=== PATIENT | female | born 1980 | race Hispanic/Latino ===

== ENCOUNTER 2021-06-13 22:34 | Emergency (ER) | payer SELFPAY ==
[~2021-06-13] VITALS: Ht 154.9 cm; Wt 60.6 kg
[2021-06-13 22:48] VITALS: BP 140/93
[2021-06-13 23:09] VITALS: BP 99/70
[2021-06-13 23:30] VITALS: BP 109/68
[2021-06-13 23:33] LABS: URINE BILIRUBIN - DIPSTICK NEGATIVE (NEGATIVE); URINE BLOOD DIPSTICK MODERATE (NEGATIVE); URINE COLOR YELLOW; URINE GLUCOSE - DIPSTICK NEGATIVE (NEGATIVE); URINE PH 6.5 (4.5-8.0); URINE PROTEIN - DIPSTICK TRACE mg/dL (NEG-TRACE); URINE SPECIFIC GRAVITY <=1.005; URINE UROBILINOGEN - DIPSTICK 0.2 E.U./dL (0.2)
[2021-06-13 23:42] LABS: ALBUMIN 4.5 g/dL (3.2-5.0); ALKALINE PHOSPHATASE 66 u/l (38-126); AMYLASE 71 u/l (30-110); ANION GAP 16 (6-22 (CALC)); BILIRUBIN, TOTAL 0.7 mg/dL (0.0-1.4); BUN 14 mg/dL (7-17); BUN/CREATININE RATIO 13 (12-20 (CALC)); CARBON DIOXIDE 21 mmol/l (22-30); CHLORIDE 99 mmol/l (95-108); CREATININE 1.1 mg/dL (0.5-1.0); GFR 55 ML/MIN (>=60 (CALC)); GFR FOR AFR.AMER. > 60 ML/MIN (>=60 (CALC)); HEMATOCRIT 24.8 % (37.0-47.0); HEMOGLOBIN 7.7 g/dl (12.0-16.0); LIPASE 92 u/l (23-300); MEAN CELL VOLUME 82.4 fL CALC (80.0-100.0); MEAN CORPUSCULAR HGB 25.6 pG CALC (26.0-32.0); NEUT# 0.98 thou/uL (2.00-7.15); POTASSIUM 3.3 mmol/l (3.5-5.1); RED BLOOD COUNT 3.01 mill/uL (4.20-5.60); RED CELL DISTRI WIDTH 14.9 % (11.5-15.5); SGOT/AST 70 u/l (14-36); SODIUM 132 mmol/l (137-146); TOTAL PROTEIN 7.4 g/dL (6.3-8.2)
[2021-06-13 23:51] LABS: URINE KETONE NEGATIVE (NEGATIVE); URINE LEUK ESTERASE LARGE (NEGATIVE); URINE NITRITE - DIPSTICK POSITIVE (Negative)
[2021-06-13 23:53] LABS: URINE EPITHELIAL CELLS MODERATE EPI/hpf (0-FEW); URINE WBC 20-50 WBC/hpf (0-5)
[2021-06-13 23:54] LABS: URINE BACTERIA MANY hpf
[2021-06-14] VITALS (10 sets, daily range): BP systolic 84–105; BP diastolic 56–69
--- NOTE | 2021-06-15 09:27 | NUR ---
PRELIMINARY BC SHOWS GRAM (-) RODS IN 4/4 VIALS. RESULTS FAXED TO NURSE ASHLEY AT [facility] ([phone]).
== END 2021-06-14 00:33 | disposition short-term general hospital (02) | DRG 690 ==
LOC: ED 22:34 → ED-I 06-14 02:10
PROVIDERS: Emergency Medicine
DX: N39.0 Urinary tract infection, site not specified (principal); D64.9 Anemia, unspecified; D72.819 Decreased white blood cell count, unspecified; Z20.822 Contact with and (suspected) exposure to COVID-19
CPT/HCPCS: Q9967

== ENCOUNTER 2021-10-03 10:59 | Emergency (ER) | payer SELFPAY ==
[~2021-10-03] VITALS: Ht 154.9 cm; Wt 63.6 kg
[2021-10-03 11:13] VITALS: BP 124/89
[2021-10-03 11:30] VITALS: BP 110/85
[2021-10-03 12:00] VITALS: BP 117/87
[2021-10-03 12:30] VITALS: BP 116/90
[2021-10-03 13:01] VITALS: BP 116/90
== END 2021-10-03 13:02 | disposition home or self-care (01) | DRG 179 ==
LOC: ED 10:59
DX: U07.1 COVID-19 (principal); R51.9 Headache, unspecified; R50.9 Fever, unspecified

== ENCOUNTER 2021-11-30 13:48 | Emergency (ER) | payer SELFPAY ==
[2021-11-30] VITALS (13 sets, daily range): BP systolic 127–163; BP diastolic 90–112
[~2021-11-30] VITALS: Ht 154.9 cm; Wt 60.0 kg
[2021-11-30 14:26] LABS: HEMATOCRIT 26.6 % (37.0-47.0); HEMOGLOBIN 8.2 g/dl (12.0-16.0); IMMATURE GRANULOCYTES 0.1 % (0.0-5.0); MEAN CELL VOLUME 81.8 fL CALC (80.0-100.0); MEAN CORPUSCULAR HGB 25.2 pG CALC (26.0-32.0); MEAN CORPUSCULAR HGB CONC 30.8 g/dL CAL (32.0-36.0); NEUT# 4.4 thou/uL (2.00-7.15); RED BLOOD COUNT 3.25 mill/uL (4.20-5.60); RED CELL DISTRI WIDTH 18.2 % (11.5-15.5)
[2021-11-30 14:37] LABS: ALBUMIN 5.1 g/dL (3.2-5.0); ALKALINE PHOSPHATASE 46 u/l (38-126); ANION GAP 18 (6-22 (CALC)); BILIRUBIN, TOTAL 0.5 mg/dL (0.0-1.4); BUN 14 mg/dL (7-17); BUN/CREATININE RATIO 13 (12-20 (CALC)); CARBON DIOXIDE 22 mmol/l (22-30); CHLORIDE 102 mmol/l (95-108); CREATININE 1.1 mg/dL (0.5-1.0); GFR FOR AFR.AMER. > 60 ML/MIN (>=60 (CALC)); GFR OTHER RACES 55 ML/MIN (>=60 (CALC)); LIPASE 166 u/l (23-300); POTASSIUM 3.2 mmol/l (3.5-5.1); SGOT/AST 64 u/l (14-36); TOTAL PROTEIN 8.5 g/dL (6.3-8.2)
[2021-11-30 14:41] LABS: SODIUM 139 mmol/l (137-146)
[2021-11-30 16:02] LABS: URINE BILIRUBIN - DIPSTICK NEGATIVE (NEGATIVE); URINE BLOOD DIPSTICK TRACE-INTACT (NEGATIVE); URINE COLOR YELLOW; URINE GLUCOSE - DIPSTICK NEGATIVE (NEGATIVE); URINE KETONE NEGATIVE (NEGATIVE); URINE LEUK ESTERASE NEGATIVE (NEGATIVE); URINE PH 6.5 (4.5-8.0); URINE PROTEIN - DIPSTICK NEGATIVE (NEG-TRACE); URINE SPECIFIC GRAVITY 1.015; URINE UROBILINOGEN - DIPSTICK 0.2 E.U./dL (0.2)
[2021-11-30 16:10] LABS: URINE NITRITE - DIPSTICK NEGATIVE (Negative)
[2021-11-30] MEDS ORDERED: ZOFRAN4 MG/TAB PO (16:44)
== END 2021-11-30 17:05 | disposition home or self-care (01) | DRG 392 ==
LOC: ED 13:48
PROVIDERS: Family Medicine
DX: R11.2 Nausea with vomiting, unspecified (principal)

== ENCOUNTER 2022-01-08 14:26 | Emergency (ER) | payer SELFPAY ==
[2022-01-08] VITALS (13 sets, daily range): BP systolic 91–138; BP diastolic 65–104
[~2022-01-08] VITALS: Ht 154.9 cm; Wt 81.8 kg
[~2022-01-08 14:26] MED LIST: ZOFRAN4 MG/TAB PO
[2022-01-08 15:05] LABS: HEMATOCRIT 25.1 % (37.0-47.0); HEMOGLOBIN 7.6 g/dl (12.0-16.0); MEAN CELL VOLUME 80.2 fL CALC (80.0-100.0); MEAN CORPUSCULAR HGB 24.3 pG CALC (26.0-32.0); MEAN CORPUSCULAR HGB CONC 30.3 g/dL CAL (32.0-36.0); NEUT# 2.04 thou/uL (2.00-7.15); RED BLOOD COUNT 3.13 mill/uL (4.20-5.60); RED CELL DISTRI WIDTH 15.7 % (11.5-15.5)
[2022-01-08 15:21] LABS: ALBUMIN 5.2 g/dL (3.2-5.0); BILIRUBIN, TOTAL 0.5 mg/dL (0.0-1.4); CREATININE 1.3 mg/dL (0.5-1.0); POTASSIUM 3.1 mmol/l (3.5-5.1); TOTAL PROTEIN 8.4 g/dL (6.3-8.2)
== END 2022-01-08 17:26 | disposition home or self-care (01) | DRG 204 ==
LOC: ED 14:26
PROVIDERS: Family Medicine
DX: R06.02 Shortness of breath (principal)

== ENCOUNTER 2022-02-25 10:27 | Inpatient (IN) | payer MEDICAID ==
[~2022-02-25] VITALS: Ht 154.9 cm; Wt 57.0 kg
[2022-02-25] VITALS (9 sets, daily range): BP systolic 107–145; BP diastolic 76–95
[2022-02-25 10:59] LABS: BASO% 0.9 % (0-3); EOS% 3.6 % (0-8); HEMATOCRIT 24.3 % (37.0-47.0); HEMOGLOBIN 7.2 g/dl (12.0-16.0); IMMATURE GRANULOCYTES 0.2 % (0.0-5.0); LYMPH% 37.9 % (15-41); MEAN CELL VOLUME 75.9 fL CALC (80.0-100.0); MEAN CORPUSCULAR HGB 22.5 pG CALC (26.0-32.0); MEAN CORPUSCULAR HGB CONC 29.6 g/dL CAL (32.0-36.0); MONO% 4.7 % (2-13); NEUT# 2.82 thou/uL (2.00-7.15); NEUT% 52.7 % (42-76); RED BLOOD COUNT 3.2 mill/uL (4.20-5.60); RED CELL DISTRI WIDTH 17.3 % (11.5-15.5)
[2022-02-25 11:10] LABS: ALKALINE PHOSPHATASE 49 u/l (38-126); ANION GAP 11 (6-22 (CALC)); BILIRUBIN, TOTAL 0.3 mg/dL (0.0-1.4); BUN 10 mg/dL (7-17); BUN/CREATININE RATIO 10 (12-20 (CALC)); CARBON DIOXIDE 25 mmol/l (22-30); CHLORIDE 107 mmol/l (95-108); GFR FOR AFR.AMER. > 60 ML/MIN (>=60 (CALC)); GFR OTHER RACES > 60 ML/MIN (>=60 (CALC)); POTASSIUM 3.5 mmol/l (3.5-5.1); SGOT/AST 43 u/l (14-36); SODIUM 139 mmol/l (137-146); TOTAL PROTEIN 8.1 g/dL (6.3-8.2)
[2022-02-25 11:59] LABS: URINE BILIRUBIN - DIPSTICK NEGATIVE (NEGATIVE); URINE BLOOD DIPSTICK LARGE (NEGATIVE); URINE COLOR YELLOW; URINE GLUCOSE - DIPSTICK NEGATIVE (NEGATIVE); URINE KETONE NEGATIVE (NEGATIVE); URINE LEUK ESTERASE NEGATIVE (NEGATIVE); URINE PROTEIN - DIPSTICK TRACE mg/dL (NEG-TRACE); URINE UROBILINOGEN - DIPSTICK 0.2 E.U./dL (0.2)
[2022-02-25 12:01] LABS: URINE NITRITE - DIPSTICK NEGATIVE (Negative)
[2022-02-25 12:19] LABS: URINE AMORPH SEDIMENT MODERATE hpf (NONE-FEW); URINE SQUAMOUS EPITHELIAL CELL FEW EPI/hpf (0-FEW); URINE WBC 0-2 WBC/hpf (0-5)
[2022-02-26] VITALS (11 sets, daily range): BP systolic 92–119; BP diastolic 57–80
[2022-02-26] MEDS ORDERED: PERCOCET 5/321 COMBO PO (09:18)
[2022-02-27] VITALS (13 sets, daily range): BP systolic 104–152; BP diastolic 71–98
[2022-02-27 10:28] LABS: BASO% 0.6 % (0-3); EOS% 2.1 % (0-8); HEMATOCRIT 22.8 % (37.0-47.0); IMMATURE GRANULOCYTES 0.2 % (0.0-5.0); MEAN CELL VOLUME 78.1 fL CALC (80.0-100.0); MEAN CORPUSCULAR HGB 21.9 pG CALC (26.0-32.0); MEAN CORPUSCULAR HGB CONC 28.1 g/dL CAL (32.0-36.0); MONO% 4.4 % (2-13); NEUT# 3.47 thou/uL (2.00-7.15); NEUT% 66.7 % (42-76); RED BLOOD COUNT 2.92 mill/uL (4.20-5.60); RED CELL DISTRI WIDTH 17.2 % (11.5-15.5)
[2022-02-27 10:31] LABS: HEMOGLOBIN 6.4 g/dl (12.0-16.0)
[2022-02-27 10:53] LABS: ALKALINE PHOSPHATASE 40 u/l (38-126); ANION GAP 8 (6-22 (CALC)); BUN 4 mg/dL (7-17); BUN/CREATININE RATIO 4 (12-20 (CALC)); CARBON DIOXIDE 27 mmol/l (22-30); CHLORIDE 105 mmol/l (95-108); GFR FOR AFR.AMER. > 60 ML/MIN (>=60 (CALC)); GFR OTHER RACES > 60 ML/MIN (>=60 (CALC)); POTASSIUM 3.1 mmol/l (3.5-5.1); SODIUM 137 mmol/l (137-146)
[2022-02-27 10:54] LABS: BILIRUBIN, TOTAL 0.6 mg/dL (0.0-1.4); SGOT/AST 89 u/l (14-36); TOTAL PROTEIN 6.4 g/dL (6.3-8.2)
[2022-02-28] VITALS (8 sets, daily range): BP systolic 117–148; BP diastolic 89–109
[2022-02-28] MEDS ORDERED: OMEPRAZOLE20 MG PO (08:46)
[2022-02-28 08:48] LABS: HEMOGLOBIN 9.7 g/dl (12.0-16.0)
== END 2022-02-28 13:54 | disposition home or self-care (01) | DRG 357 ==
LOC: ED 10:27 → ED-I 12:20 → ED 12:34 → MS2 12:35
PROVIDERS: Family Medicine; ADMIT Surgery; ATTEND Surgery
PROC: 0FT44ZZ Resection of Gallbladder, Percutaneous Endoscopic Approach (ICD-10-PCS; principal; 2022-02-26)
PROC: 30233N1 Transfusion of Nonautologous Red Blood Cells into Peripheral Vein, Percutaneous Approach (ICD-10-PCS; 2022-02-27)
PROC: 30233N1 Transfusion of Nonautologous Red Blood Cells into Peripheral Vein, Percutaneous Approach (ICD-10-PCS; 2022-02-27)
PROC: 0DB78ZX Excision of Stomach, Pylorus, Via Natural or Artificial Opening Endoscopic, Diagnostic (ICD-10-PCS; 2022-02-28)
DX: K29.71 Gastritis, unspecified, with bleeding (principal); K80.00 Calculus of gallbladder with acute cholecystitis without obstruction; D64.9 Anemia, unspecified; I10 Essential (primary) hypertension; J45.909 Unspecified asthma, uncomplicated; Z20.822 Contact with and (suspected) exposure to COVID-19
CPT/HCPCS: J0131; P9016; S0164

== ENCOUNTER 2022-03-24 20:08 | Emergency (ER) | payer OTHER, MEDICAID ==
[~2022-03-24] VITALS: Ht 154.9 cm; Wt 58.9 kg
[~2022-03-24 20:08] MED LIST changes: +OMEPRAZOLE20 MG PO; +PERCOCET 5/321 COMBO PO
[2022-03-24 20:24] VITALS: BP 132/98
[2022-03-24 20:30] VITALS: BP 125/88
[2022-03-24 20:45] VITALS: BP 134/101
[2022-03-24 21:00] VITALS: BP 127/95
[2022-03-24 21:15] VITALS: BP 115/88
[2022-03-24 21:23] VITALS: BP 115/88
== END 2022-03-24 21:36 | disposition home or self-care (01) | DRG 563 ==
LOC: ED 20:08
DX: S53.402A Unspecified sprain of left elbow, initial encounter (principal); S63.92XA Sprain of unspecified part of left wrist and hand, initial encounter; S63.502A Unspecified sprain of left wrist, initial encounter; S50.312A Abrasion of left elbow, initial encounter; I10 Essential (primary) hypertension; J45.909 Unspecified asthma, uncomplicated; W01.0XXA Fall on same level from slipping, tripping and stumbling without subsequent striking against object, initial encounter

== ENCOUNTER 2022-04-20 17:58 | Emergency (ER) | payer MEDICAID ==
[2022-04-20] VITALS (18 sets, daily range): BP systolic 110–147; BP diastolic 87–97
[~2022-04-20] VITALS: Ht 154.9 cm; Wt 54.5 kg
[2022-04-20 21:33] LABS: URINE BILIRUBIN - DIPSTICK NEGATIVE (NEGATIVE); URINE BLOOD DIPSTICK LARGE (NEGATIVE); URINE COLOR YELLOW; URINE GLUCOSE - DIPSTICK NEGATIVE (NEGATIVE); URINE KETONE TRACE mg/dL (NEGATIVE); URINE LEUK ESTERASE NEGATIVE (NEGATIVE); URINE PH 6.5 (4.5-8.0); URINE PROTEIN - DIPSTICK NEGATIVE (NEG-TRACE); URINE UROBILINOGEN - DIPSTICK 0.2 E.U./dL (0.2)
[2022-04-20 21:36] LABS: URINE NITRITE - DIPSTICK NEGATIVE (Negative)
[2022-04-20 21:55] LABS: URINE SQUAMOUS EPITHELIAL CELL FEW EPI/hpf (0-FEW); URINE WBC 0-2 WBC/hpf (0-5)
[2022-04-20 22:10] LABS: BASO% 0.2 % (0-3); EOS% 2.7 % (0-8); HEMATOCRIT 29.7 % (37.0-47.0); HEMOGLOBIN 9.2 g/dl (12.0-16.0); IMMATURE GRANULOCYTES 0.2 % (0.0-5.0); LYMPH% 15.1 % (15-41); MEAN CORPUSCULAR HGB 26.3 pG CALC (26.0-32.0); MONO% 2.7 % (2-13); NEUT# 4.68 thou/uL (2.00-7.15); NEUT% 79.1 % (42-76); RED BLOOD COUNT 3.5 mill/uL (4.20-5.60); RED CELL DISTRI WIDTH 23.4 % (11.5-15.5)
[2022-04-20 22:12] LABS: MEAN CELL VOLUME 84.9 fL CALC (80.0-100.0)
[2022-04-20 22:44] LABS: ALBUMIN 4.5 g/dL (3.2-5.0); AMYLASE 64 u/l (30-110); ANION GAP 12 (6-22 (CALC)); BILIRUBIN, TOTAL 0.5 mg/dL (0.02-1.3); BUN 13 mg/dL (7-17); BUN/CREATININE RATIO 14 (12-20 (CALC)); CARBON DIOXIDE 22 mmol/l (22-30); CHLORIDE 105 mmol/l (95-108); CREATININE 0.9 mg/dL (0.5-1.0); GFR FOR AFR.AMER. > 60 ML/MIN (>=60 (CALC)); GFR OTHER RACES > 60 ML/MIN (>=60 (CALC)); LIPASE 126 u/l (23-300); POTASSIUM 3.2 mmol/l (3.5-5.1); SGOT/AST 52 u/l (14-36); SODIUM 136 mmol/l (137-146); TOTAL PROTEIN 7.2 g/dL (6.3-8.2)
[2022-04-20 22:47] LABS: ALKALINE PHOSPHATASE 61 u/l (38-126)
[2022-04-20] MEDS ORDERED: LOMOTIL2.5 MG PO (23:11)
[2022-04-20] MEDS ORDERED: ONDANSETRON4 MG PO (23:11)
[2022-04-26] MEDS ORDERED: OMEPRAZOLE20 MG PO (08:44)
== END 2022-04-20 23:38 | disposition home or self-care (01) ==
LOC: ED 17:58
PROVIDERS: Emergency Medicine
DX: R11.2 Nausea with vomiting, unspecified (principal); I10 Essential (primary) hypertension; J45.909 Unspecified asthma, uncomplicated; Z20.822 Contact with and (suspected) exposure to COVID-19

== ENCOUNTER 2022-06-20 08:27 | Emergency (ER) | payer OTHER ==
[~2022-06-20] VITALS: Ht 154.9 cm; Wt 63.2 kg
[~2022-06-20 08:27] MED LIST changes: +LOMOTIL2.5 MG PO; +ONDANSETRON4 MG PO
[2022-06-20] MEDS ORDERED: DOXY-CAPS100 MG PO (09:10)
[2022-06-20 09:25] VITALS: BP 126/98
== END 2022-06-20 09:30 | disposition home or self-care (01) | DRG 153 ==
LOC: ED 08:27
DX: J06.9 Acute upper respiratory infection, unspecified (principal); I10 Essential (primary) hypertension; J45.909 Unspecified asthma, uncomplicated

== ENCOUNTER 2023-08-25 22:14 | Emergency (ER) | payer OTHER ==
[~2023-08-25] VITALS: Ht 154.9 cm; Wt 59.0 kg
[~2023-08-25 22:14] MED LIST changes: +DOXY-CAPS100 MG PO
[2023-08-25] MEDS ORDERED: SODIUM CHLORIDE 0.9% 1,000 ML IV STA (22:25)
[2023-08-25] MEDS ORDERED: PROMETHAZINE HCL 25 MG/ML AMP IV ONE (22:30)
[2023-08-25] MEDS ORDERED: KETOROLAC TROMETHAMINE 30 MG/ML SDV IV ONE (22:30)
[2023-08-25 22:55] LABS: URINE BILIRUBIN - DIPSTICK Negative (NEGATIVE); URINE BLOOD DIPSTICK Large (NEGATIVE); URINE GLUCOSE - DIPSTICK Negative (NEGATIVE); URINE KETONE Negative (NEGATIVE); URINE LEUK ESTERASE Negative (NEGATIVE); URINE NITRITE - DIPSTICK Negative (Negative); URINE PH 5.5 (4.5-8.0); URINE PROTEIN - DIPSTICK 30 mg/dL (NEG-TRACE); URINE UROBILINOGEN - DIPSTICK 0.2 E.U./dL (0.2)
[2023-08-25 22:57] LABS: BASO% 0.5 % (0-3); EOS% 4.1 % (0-8); IMMATURE GRANULOCYTES 0.2 % (0.0-5.0); LYMPH% 42.1 % (15-41); MEAN CORPUSCULAR HGB 28.2 pG CALC (26.0-32.0); MEAN CORPUSCULAR HGB CONC 32.4 g/dL CAL (32.0-36.0); MONO% 5.9 % (2-13); NEUT# 2.62 thou/uL (2.00-7.15); NEUT% 47.2 % (42-76); RED BLOOD COUNT 4.43 mill/uL (4.20-5.60); RED CELL DISTRI WIDTH 22.4 % (11.5-15.5)
[2023-08-25 22:58] LABS: HEMATOCRIT 38.6 % (37.0-47.0); HEMOGLOBIN 12.5 g/dl (12.0-16.0); MEAN CELL VOLUME 87.1 fL CALC (80.0-100.0)
[2023-08-25 23:00] LABS: URINE COLOR Red
[2023-08-25 23:05] LABS: URINE RBC 25-50 RBC/hpf (0-5); URINE SQUAMOUS EPITHELIAL CELL FEW EPI/hpf (0-FEW)
[2023-08-25 23:30] VITALS: BP 121/77
[2023-08-25 23:45] VITALS: BP 101/66
[2023-08-25 23:47] LABS: ALBUMIN 4.3 g/dL (3.2-5.0); ALKALINE PHOSPHATASE 46 u/l (38-126); BUN 11 mg/dL (7-17); BUN/CREATININE RATIO 18 (12-20 (CALC)); CARBON DIOXIDE 19 mmol/l (22-30); CHLORIDE 112 mmol/l (95-108); CREATININE 0.6 mg/dL (0.5-1.0); ESTIMATED GFR 114 ML/MIN (>=90 (CALC)); SGOT/AST 47 u/l (14-36); SODIUM 140 mmol/l (137-146); TOTAL PROTEIN 7.5 g/dL (6.3-8.2)
[2023-08-25 23:55] LABS: ANION GAP 13 (6-22 (CALC)); BILIRUBIN, TOTAL 0.5 mg/dL (0.02-1.3); POTASSIUM 3.9 mmol/l (3.5-5.1)
[2023-08-26] VITALS: BP 120/88
[2023-08-26] MEDS ORDERED: ANTI-DIARRHE2 M1 PO ×2 (00:12→00:40)
[2023-08-26] MEDS ORDERED: DICYCLOMINE HYD10 MG PO ×2 (00:12→00:40)
[2023-08-26 00:15] VITALS: BP 108/77
[2023-08-26 00:40] VITALS: BP 108/77
== END 2023-08-26 00:40 | disposition home or self-care (01) | DRG 392 ==
LOC: ED 22:14
PROVIDERS: Family Medicine
DX: R10.32 Left lower quadrant pain (principal); R19.7 Diarrhea, unspecified; I10 Essential (primary) hypertension; J45.909 Unspecified asthma, uncomplicated; Z20.822 Contact with and (suspected) exposure to COVID-19

== ENCOUNTER 2024-01-08 08:42 | Emergency (ER) | payer OTHER ==
[~2024-01-08] VITALS: Ht 154.9 cm; Wt 58.0 kg
[~2024-01-08 08:42] MED LIST changes: +ANTI-DIARRHE2 M1 PO; +DICYCLOMINE HYD10 MG PO
[2024-01-08 08:48] VITALS: BP 127/94
[2024-01-08 09:00] VITALS: BP 120/85
[2024-01-08] MEDS ORDERED: LEVOTHYROXIN150 MC1 PO (09:03)
[2024-01-08] MEDS ORDERED: FEROSUL325 MG (09:03)
[2024-01-08 09:15] VITALS: BP 128/87
[2024-01-08] MEDS ORDERED: PEPCID20 MG PO (09:15)
[2024-01-08] MEDS ORDERED: MEDDOSEPAK PO (09:15)
[2024-01-08] MEDS ORDERED: HYDROXYZ HCL25 MG PO (09:15)
[2024-01-08] MEDS ORDERED: DEXAMETHASONE SOD. PHOSPHATE 10 MG/ML VIAL IM ONE (09:20)
[2024-01-08] MEDS ORDERED: FAMOTIDINE 20 MG/TAB PO ONE (09:20)
[2024-01-08] MEDS ORDERED: hydrOXYzine HCL 25 MG/TAB PO ONE (09:20)
[2024-01-08 09:30] VITALS: BP 123/92
[2024-01-08 09:38] VITALS: BP 123/92
== END 2024-01-08 09:48 | disposition home or self-care (01) | DRG 607 ==
LOC: ED 08:42
DX: L23.9 Allergic contact dermatitis, unspecified cause (principal); I10 Essential (primary) hypertension; E03.9 Hypothyroidism, unspecified; J45.909 Unspecified asthma, uncomplicated

== ENCOUNTER 2024-05-06 13:16 | Emergency (ER) | payer OTHER ==
[~2024-05-06] VITALS: Ht 154.9 cm; Wt 54.4 kg
[2024-05-06] VITALS (12 sets, daily range): BP systolic 128–154; BP diastolic 82–119
[~2024-05-06 13:16] MED LIST changes: +FEROSUL325 MG; +HYDROXYZ HCL25 MG PO; +LEVOTHYROXIN150 MC1 PO; +MEDDOSEPAK PO; +PEPCID20 MG PO
[2024-05-06] MEDS ORDERED: KETOROLAC TROMETHAMINE 15 MG/ML SDV IV ONE (13:35)
[2024-05-06] MEDS ORDERED: ONDANSETRON HCl 4 MG/2 ML SDV IV ONE (13:35)
[2024-05-06] MEDS ORDERED: SODIUM CHLORIDE 0.9% 1,000 ML IV ONE (13:35)
[2024-05-06 13:52] LABS: BASO% 0.5 % (0-3); EOS% 3.3 % (0-8); HEMATOCRIT 41.3 % (37.0-47.0); HEMOGLOBIN 13.8 g/dl (12.0-16.0); IMMATURE GRANULOCYTES 0.2 % (0.0-5.0); LYMPH% 30.4 % (15-41); MEAN CORPUSCULAR HGB 31.7 pG CALC (26.0-32.0); MEAN CORPUSCULAR HGB CONC 33.4 g/dL CAL (32.0-36.0); MONO% 5.2 % (2-13); NEUT# 3.63 thou/uL (2.00-7.15); NEUT% 60.4 % (42-76); RED BLOOD COUNT 4.36 mill/uL (4.20-5.60)
[2024-05-06 13:54] LABS: MEAN CELL VOLUME 94.7 fL CALC (80.0-100.0)
[2024-05-06 14:01] LABS: ALBUMIN 4.6 g/dL (3.2-5.0); BILIRUBIN, TOTAL 0.6 mg/dL (0.02-1.3); CREATININE 0.7 mg/dL (0.5-1.0); POTASSIUM 4.1 mmol/l (3.5-5.1); TOTAL PROTEIN 7.5 g/dL (6.3-8.2)
[2024-05-06 16:06] LABS: URINE BILIRUBIN - DIPSTICK Negative (NEGATIVE); URINE BLOOD DIPSTICK Moderate (NEGATIVE); URINE COLOR Yellow; URINE GLUCOSE - DIPSTICK Negative (NEGATIVE); URINE KETONE Trace mg/dL (NEGATIVE); URINE LEUK ESTERASE Negative (NEGATIVE); URINE NITRITE - DIPSTICK Negative (Negative); URINE PROTEIN - DIPSTICK Negative (NEG-TRACE); URINE SPECIFIC GRAVITY 1.015; URINE UROBILINOGEN - DIPSTICK 0.2 E.U./dL (0.2)
[2024-05-06 16:31] LABS: URINE BACTERIA FEW hpf; URINE RBC 0-2 RBC/hpf (0-5); URINE SQUAMOUS EPITHELIAL CELL FEW EPI/hpf (0-FEW); URINE WBC 0-2 WBC/hpf (0-5)
[2024-05-06] MEDS ORDERED: EC-NAPROXEN500 MG PO (16:44)
== END 2024-05-06 17:10 | disposition home or self-care (01) | DRG 392 ==
LOC: ED 13:16
PROVIDERS: Family Medicine
DX: R10.11 Right upper quadrant pain (principal); I10 Essential (primary) hypertension; J45.909 Unspecified asthma, uncomplicated; Z90.49 Acquired absence of other specified parts of digestive tract
CPT/HCPCS: J1885; J2405